=== PATIENT | male | born 2000 | race Caucasian/White ===

== ENCOUNTER 2020-02-11 17:12 | Emergency (ER) | payer SELFPAY ==
[2020-02-11 17:44] VITALS: PULSE 91
[2020-02-11 18:18] VITALS: BP 147/96
--- NOTE | 2020-02-11 18:31 | EDM.PDOC ---
ED HPI GENERAL MEDICAL PROBLEM - General Chief Complaint: Head Injury Stated Complaint: RIB AND HEAD INJURY Time Seen by Provider: 02/11/20 17:34 Source of Information: Reports: Patient, RN Notes Reviewed - History of Present Illness INITIAL COMMENTS - FREE TEXT/NARRATIVE: 19 yr old male wiped out on his long skateboard going to work. He states he hit some "black ice" He believes he had brief LOC. Moderate Haney at time of exam. No nausea or vomiting. No neck or back pain. L rib pain. This was called a trauma alert based on [facility]. of injury. Head Pain Score (Numeric/FACES): 10 Back Pain Score (Numeric/FACES): 10 - Related Data Allergies Allergy/AdvReac Type Severity Reaction Status Date / Time No Known Allergies Allergy Verified 04/03/16 13:06 Home Meds: Home Meds . [No Known Home Meds] 02/11/20 [History] Past Medical History HEENT History: Reports: Impaired Vision Genitourinary History: Reports: Other (See Below) Other Genitourinary History: testicular hernia repair at Psychiatric History: Reports: Depression - Past Surgical History HEENT Surgical History: Reports: Myringotomy w Tube(s), Oral Surgery Social & Family History - Family History Cardiac: Reports: Heart Failure, Hypertension Psychiatric: Reports: Anxiety, Depression Endocrine/Metabolic: Reports: Diabetes, type II Oncologic: Reports: Colon, Skin - Tobacco Use Smoking Status *Q: Current Every Day Smoker Years of Tobacco use: 3 Packs/Tins Daily: 2 - Caffeine Use Caffeine Use: Reports: Coffee, Soda - Recreational Drug Use Recreational Drug Type: Reports: Marijuana/Hashish Other Recreational Drug Type: stopped 3 weeks ago ED ROS GENERAL - Review of Systems Review Of Systems: See Below Constitutional: Reports: No Symptoms HEENT: Denies: Ear Discharge, Vertigo, Vision Change Respiratory: Denies: Shortness of Breath, Pleuritic Chest Pain Cardiovascular: Reports: Chest Pain (L lateral chest) GI/Abdominal: Denies: Abdominal Pain, Nausea, Vomiting Musculoskeletal: Denies: Neck Pain, Shoulder Pain, Arm Pain, Back Pain, Joint Pain Skin: Reports: Other (He has some scattered abrasions L arm and L leg) Neurological: Reports: Headache. Denies: Numbness, Tingling, Trouble Speaking, Difficulty Walking, Weakness ED EXAM, HEAD INJURY - Physical Exam Exam: See Below General Appearance: Alert, Mild Distress Head: Atraumatic, Scalp Tenderness. No: Scalp Swelling, Scalp Hematoma, Landry' s Sign, Facial Abrasions, Facial Swelling, Facial Tenderness, Raccoon Eyes Eyes: Bilateral Eye: PERRL Ears: Normal External Exam Nose: Normal Inspection Throat/Mouth: Normal Inspection Neck: Non-Tender, Full Range of Motion Respiratory: No Respiratory Distress, Lungs Clear, Normal Breath Sounds, Other ( tender L lateral chest, no bruising, swelling or abrasion visible) GI/Abdominal Exam: Soft, Non-Tender. No: Guarding, Rebound Back Exam: Normal Inspection. No: Paraspinal Tenderness, Vertebral Tenderness Extremities: Normal Inspection, Normal Range of Motion, Other (no bony tenderness) Skin: Normal Color, Warm/Dry Course - Vital Signs Last Recorded V/S: Last Vital Signs Temp 99.0 F 02/11/20 18:18 Pulse 91 02/11/20 17:30 Resp 16 02/11/20 18:18 BP 147/96 H 02/11/20 18:18 Pulse Ox 100 02/11/20 18:18 - Orders/Labs/Meds Orders: Active Orders 24 hr Category Date Time Status Head wo Cont [CT] Stat Exams 02/11/20 17:40 Taken Ribs 2V w Chest Lt [CR] Stat Exams 02/11/20 17:40 Taken - Re-Assessments/Exams Free Text/Narrative Re-Assessment/Exam: 02/11/20 18:58 CXR, ribs nl, Head CT nl Departure - Departure Time of Disposition: 18:29 Disposition: Home, Self-Care 01 Condition: Fair Clinical Impression: Fall, Contusion, chest wall, Contusion of scalp - Discharge Information Instructions: Facial or Scalp Contusion, [id number], Rib Contusion Referrals: PCP,None [Primary Care Provider] - Forms: ED Department Discharge, ED Return to Work/School Form Additional Instructions: Rest, increase activity slowly as tolerated. Avoid further injury to your head. follow up clinic if not much better within 3 to 4 days as expected, return to ED if symptoms worsening in any way. Sepsis Event Note - Evaluation Sepsis Screening Result: No Definite Risk - Focused Exam Vital Signs: Vital Signs Temp Pulse Resp BP Pulse Ox 02/11/20 18:18 99.0 F 16 147/96 H 100 02/11/20 17:30 99.4 F 91 20 150/96 H 100 Date Exam was Performed: 02/11/20 Time Exam was Performed: 18:53 - My Orders Last 24 Hours: My Active Orders 02/11/20 17:40 Head wo Cont [CT] Stat Ribs 2V w Chest Lt [CR] Stat - Assessment/Plan Last 24 Hours: My Active Orders 02/11/20 17:40 Head wo Cont [CT] Stat Ribs 2V w Chest Lt [CR] Stat
--- NOTE | 2020-02-12 07:39 | CT ---
Head CT Technique: Multiple axial sections through the brain were obtained. Intravenous contrast was not utilized. Comparison: No prior intracranial imaging is available. Findings: Ventricles along with basal cisterns and sulci over the convexities are within normal limits for the patient's age. No abnormal parenchymal densities are seen. No evidence of intracranial hemorrhage. No midline shift or mass-effect is seen. Bone window settings were reviewed. No acute calvarial abnormality is appreciated. Visualized mastoid sinuses and visualized paranasal sinuses are clear. Impression: 1. Nothing acute is appreciated on noncontrast head CT exam. Diagnostic code #1 This report was dictated in MDT I agree with preliminary report from [facility], finalized on 02/11/20, 7:10 PM Central Time
--- NOTE | 2020-02-12 07:39 | CR ---
Chest and left ribs: Frontal view of the chest was obtained as well as 4 views of the left ribs. Comparison: No prior chest or rib imaging is available. Heart size and mediastinum are within normal limits. Lungs are clear with no acute parenchymal change. No discrete rib abnormality is appreciated. Impression: 1. No definite left-sided rib abnormality is appreciated. Nothing acute is appreciated on comforting PA chest x-ray. Diagnostic code #1 This report was dictated in MDT
== END 2020-02-11 18:45 | disposition home or self-care (01) ==
LOC: JD.ED 17:12
DX: S00.03XA Contusion of scalp, initial encounter (principal); S20.212A Contusion of left front wall of thorax, initial encounter; V00.131A Fall from skateboard, initial encounter
CPT/HCPCS: 70450; 70450-26; 71101-26-LT; 71101-LT; 99282; 99284-25

== ENCOUNTER 2020-04-12 18:58 | Emergency (ER) | payer SELFPAY ==
[2020-04-12 19:10] VITALS: BP 132/65; PULSE 82
--- NOTE | 2020-04-12 19:13 | EDM.PDOC ---
ED HPI GENERAL MEDICAL PROBLEM - General Chief Complaint: Upper Extremity Injury/Pain Stated Complaint: INJURED LEFT WRIST Time Seen by Provider: 04/12/20 19:07 Source of Information: Reports: Patient, RN Notes Reviewed History Limitations: Reports: No Limitations - History of Present Illness INITIAL COMMENTS - FREE TEXT/NARRATIVE: Patient is a 19-year-old male who presents to the ED for the evaluation of a left hand/wrist injury. The patient notes he was having an argument with a female, and he got frustrated ended up walking away and hit the wall with his left hand. Patient noticed he had some pain into his left pinky knuckle, and to his wrist. He did this shortly prior to arrival to the ER, he did not take any sort of medications at home. There is a small skin abrasion to the left fourth MCP surface. Otherwise its not actively bleeding and there is no obvious deformity noted. Patient denies any numbness and tingling into the hand , or pain in the elbow. Patient states he is right-hand dominant. Left Hand Pain Score (Numeric/FACES): 7 - Related Data Allergies Allergy/AdvReac Type Severity Reaction Status Date / Time No Known Allergies Allergy Verified 04/12/20 19:05 Home Meds: Home Meds . [No Known Home Meds] 02/11/20 [History] Past Medical History HEENT History: Reports: Impaired Vision Genitourinary History: Reports: Other (See Below) Other Genitourinary History: testicular hernia repair at Psychiatric History: Reports: Depression - Past Surgical History HEENT Surgical History: Reports: Myringotomy w Tube(s), Oral Surgery Social & Family History - Family History Cardiac: Reports: Heart Failure, Hypertension Psychiatric: Reports: Anxiety, Depression Endocrine/Metabolic: Reports: Diabetes, type II Oncologic: Reports: Colon, Skin - Tobacco Use Smoking Status *Q: Current Every Day Smoker Years of Tobacco use: 5 Packs/Tins Daily: 0.5 - Caffeine Use Caffeine Use: Reports: Coffee, Energy Drinks, Soda, Tea - Recreational Drug Use Recreational Drug Use: No Review of Systems - Review of Systems Review Of Systems: Comprehensive ROS is negative, except as noted in HPI. ED EXAM, GENERAL - Physical Exam Exam: See Below Exam Limited By: No Limitations General Appearance: Alert, WD/WN, No Apparent Distress Respiratory/Chest: No Respiratory Distress, Lungs Clear, Normal Breath Sounds, No Accessory Muscle Use, Chest Non-Tender Cardiovascular: Normal Peripheral Pulses, Regular Rate, Rhythm, No Murmur Peripheral Pulses: 3+: Radial (L), Radial (R) Extremities: Normal Inspection, Normal Range of Motion (ROM of left wrist is slow, but patient is able to move in all ROM with little difficulty), Normal Capillary Refill Neurological: Alert, Oriented, Normal Cognition, No Motor/Sensory Deficits Psychiatric: Normal Affect, Normal Mood Skin Exam: Warm, Dry, Normal Color, No Rash, Wound/Incision (small skin abrasion noted to dorsal left 4th MCP surface, not actively bleeding.) Course - Vital Signs Last Recorded V/S: Last Vital Signs Temp 98.2 F 04/12/20 19:06 Pulse 82 04/12/20 19:06 Resp 18 04/12/20 19:06 BP 132/65 04/12/20 19:06 Pulse Ox 96 04/12/20 19:06 - Orders/Labs/Meds Orders: Active Orders 24 hr Category Date Time Status Hand Comp Min 3V Lt [CR] Stat Exams 04/12/20 19:11 Ordered - Re-Assessments/Exams Free Text/Narrative Re-Assessment/Exam: 04/12/20 19:49 Patient presents to the ED for evaluation of his left hand/wrist injury. X- rays were taken at time of triage and do not demonstrate any sort of fracture or bony abnormality appreciated by myself or Dr. Chauhan. Official radiology read is pending. I did offer the patient an injection of Toradol for pain management, but he declined. He states he will take some I will discharge him home with general recommendations. Ibuprofen/Tylenol at home. Departure - Departure Time of Disposition: 19:50 Disposition: Home, Self-Care 01 Condition: Good Clinical Impression: Left hand pain, Left wrist pain - Discharge Information *PRESCRIPTION DRUG MONITORING PROGRAM REVIEWED*: No *COPY OF PRESCRIPTION DRUG MONITORING REPORT IN PATIENT SUELLEN: No Instructions: Wrist Pain, Adult, [id number] Referrals: PCP,None [Primary Care Provider] - Forms: ED Department Discharge Additional Instructions: You have been evaluated in the ED for your left hand injury. Your x-ray demonstrated no sign of any obvious fracture or other bony abnormality. Please use ice as tolerated to the affected area. Please try to elevate the affected area to relieve swelling. You may take Tylenol 500 mg or ibuprofen 600mg q6 hrs for pain relief. Please do so until you have a tolerable level of pain with activity. Do not exceed 4000mg Tylenol or 3200mg ibuprofen in a 24 hour time period. Recommend you go to a retail place like [email or web address] or any pharmacy, and obtain a wrist splint to use to help relieve pain over the next few days, or use CAROLIN wraps to help provide some light support. Please return to ED if your symptoms should change or worsen. Sepsis Event Note - Evaluation Sepsis Screening Result: No Definite Risk - Focused Exam Vital Signs: Vital Signs Temp Pulse Resp BP Pulse Ox 04/12/20 19:06 98.2 F 82 18 132/65 96 Date Exam was Performed: 04/12/20 Time Exam was Performed: 19:46 - My Orders Last 24 Hours: My Active Orders 04/12/20 19:11 Hand Comp Min 3V Lt [CR] Stat - Assessment/Plan Last 24 Hours: My Active Orders 04/12/20 19:11 Hand Comp Min 3V Lt [CR] Stat
--- NOTE | 2020-04-14 10:27 | CR ---
Left hand: 3 views left hand were obtained. Comparison: No prior hand exam is available. Joint spaces are preserved. No fracture, dislocation or other bony abnormality is seen. Impression: 1. No abnormality is identified on 4 view left hand exam. Diagnostic code #1 This report was dictated in MDT
== END 2020-04-12 20:15 | disposition home or self-care (01) ==
LOC: JD.ED 18:58
DX: S60.512A Abrasion of left hand, initial encounter (principal); M25.532 Pain in left wrist; F17.210 Nicotine dependence, cigarettes, uncomplicated; W22.01XA Walked into wall, initial encounter
CPT/HCPCS: 73130-26-LT; 73130-LT; 99282; 99283-25

== ENCOUNTER 2021-02-22 10:26 | Emergency (ER) | payer SELFPAY ==
--- NOTE | 2021-02-22 10:59 | EDM.PDOC ---
ED HPI GENERAL MEDICAL PROBLEM - General Chief Complaint: Upper Extremity Injury/Pain Stated Complaint: LT SHOULDER,ELBOW AND WRIST INJ Time Seen by Provider: 02/22/21 10:50 - History of Present Illness INITIAL COMMENTS - FREE TEXT/NARRATIVE: 20-year-old male presents the emergency room after injuring his left shoulder and elbow. Shortly before arrival the patient was reaching for his cigarettes while riding his skateboard. This was unsuccessful and he crashed landing on his left shoulder and then rolling. Patient denies any head injury or loss of consciousness. Patient complains of left shoulder pain he is pretty convinced its not his clavicle because he is injured this in the past. Patient also has some elbow discomfort but this is getting better over time. The patient initially had some wrist discomfort but this is really resolved. Patient has good range of motion of his elbow and his wrist however his shoulder seems to be problematic. He also has limited chest wall discomfort as well. Patient denies any other pain associated with this most unfortunate event. Left Shoulder Pain Score (Numeric/FACES): 8 - Related Data Allergies Allergy/AdvReac Type Severity Reaction Status Date / Time No Known Allergies Allergy Verified 02/22/21 10:44 Home Meds: Home Meds . [No Known Home Meds] 02/11/20 [History] Past Medical History HEENT History: Reports: Impaired Vision Genitourinary History: Reports: Other (See Below) Other Genitourinary History: testicular hernia repair at Psychiatric History: Reports: Autism, Depression - Past Surgical History HEENT Surgical History: Reports: Myringotomy w Tube(s), Oral Surgery Social & Family History - Family History Cardiac: Reports: Heart Failure, Hypertension Psychiatric: Reports: Anxiety, Depression Endocrine/Metabolic: Reports: Diabetes, type II Oncologic: Reports: Colon, Skin - Tobacco Use Tobacco Use Status *Q: Current Every Day Tobacco User Years of Tobacco use: 10 Packs/Tins Daily: 1 - Caffeine Use Caffeine Use: Reports: Coffee - Recreational Drug Use Recreational Drug Use: No Review of Systems - Review of Systems Review Of Systems: See Below Constitutional: Reports: No Symptoms Eyes: Reports: No Symptoms Ears: Reports: No Symptoms Nose: Reports: No Symptoms Mouth/Throat: Reports: No Symptoms Respiratory: Reports: No Symptoms, Pleuritic Chest Pain Cardiovascular: Denies: Chest Pain GI/Abdominal: Reports: No Symptoms Genitourinary: Reports: No Symptoms Musculoskeletal: Reports: Other (See history of present illness no other aches and pains at time of initial evaluation) Skin: Reports: No Symptoms Neurological: Reports: No Symptoms ED EXAM, GENERAL - Physical Exam Exam: See Below Exam Limited By: No Limitations General Appearance: Alert, No Apparent Distress Eye Exam: Bilateral Eye: EOMI, Normal Inspection, PERRL Ears: Normal External Exam, Normal Canal, Hearing Grossly Normal, Normal TMs Nose: Normal Inspection, Normal Mucosa, No Blood Throat/Mouth: Normal Inspection, Normal Lips, Normal Teeth, Normal Oropharynx, Normal Voice, No Airway Compromise Head: Atraumatic, Normocephalic Neck: Normal Inspection, Supple, Non-Tender, Full Range of Motion. No: Lymphadenopathy (L), Lymphadenopathy (R), Tender Lateral, Tender Midline, Thyromegaly Respiratory/Chest: No Respiratory Distress, Lungs Clear, Normal Breath Sounds Cardiovascular: Normal Peripheral Pulses, Regular Rate, Rhythm, No Edema GI/Abdominal: Normal Bowel Sounds, Soft, Non-Tender, No Organomegaly Back Exam: Normal Inspection, Full Range of Motion. No: CVA Tenderness (L), CVA Tenderness (R), Vertebral Tenderness Extremities: Other (Does not want to move his left shoulder very much flexion and extension supination pronation at the elbow appear to be intact but this is a little limited range of motion of the wrist hand and digits is entirely within normal limits neurovascular examination of the hand is normal) Neurological: Alert, Oriented, Normal Cognition Skin Exam: Warm, Dry, Intact, Other (He has an abrasion over his left shoulder) Course - Vital Signs Last Recorded V/S: Last Vital Signs Temp 36.3 C 02/22/21 10:38 Pulse 93 02/22/21 10:38 Resp 18 02/22/21 10:38 BP 140/75 02/22/21 10:38 Pulse Ox 97 02/22/21 10:38 - Orders/Labs/Meds Orders: Active Orders 24 hr Category Date Time Status Chest 2V [CR] Stat Exams 02/22/21 11:37 Taken Elbow Min 3V Lt [CR] Stat Exams 02/22/21 11:37 Taken Shoulder Comp Lt [CR] Stat Exams 02/22/21 11:37 Taken Durable Medical Equipment for Discharge [DME for Oth 02/22/21 12:52 Ordered Discharge] [COMM] Stat - Re-Assessments/Exams Free Text/Narrative Re-Assessment/Exam: 02/22/21 11:08 We will get x-rays to further evaluate shoulder and elbow injuries and we will check a chest x-ray as well. 02/22/21 12:54 X-rays are negative for acute fracture dislocation of the shoulder and elbow chest x-ray is unremarkable no evidence of pneumothorax or pulmonary contusion. Patient will be placed in a sling for comfort. He is advised to follow-up with his regular healthcare provider towards the end of this week for recheck. Departure - Departure Time of Disposition: 12:54 Disposition: Home, Self-Care 01 Clinical Impression: Chest wall injury, Injury of left shoulder, Contusion of left shoulder - Discharge Information Referrals: PCP,None [Primary Care Provider] - Forms: ED Department Discharge Additional Instructions: Return to the emergency room with any questions problems or worsening symptoms. Follow-up with your regular healthcare provider or follow-up here at the hospital clinic at the end of this next week for recheck. The phone number to the hospital clinic is [phone]. I recommend you wear the sling at all times until your shoulder is reevaluated. Tylenol and/or Motrin as needed for discomfort follow the directions on the bottles. Sepsis Event Note (ED) - Evaluation Sepsis Screening Result: No Definite Risk - Focused Exam Vital Signs: Vital Signs Temp Pulse Resp BP Pulse Ox 02/22/21 10:38 36.3 C 93 18 140/75 97 - My Orders Last 24 Hours: My Active Orders 02/22/21 11:37 Chest 2V [CR] Stat Elbow Min 3V Lt [CR] Stat Shoulder Comp Lt [CR] Stat 02/22/21 12:52 Durable Medical Equipment for Discharge [DME for Discharge] [COMM] Stat - Assessment/Plan Last 24 Hours: My Active Orders 02/22/21 11:37 Chest 2V [CR] Stat Elbow Min 3V Lt [CR] Stat Shoulder Comp Lt [CR] Stat 02/22/21 12:52 Durable Medical Equipment for Discharge [DME for Discharge] [COMM] Stat
--- NOTE | 2021-02-22 13:02 | CR ---
Left elbow: 4 views of the left elbow were obtained. Comparison: No prior elbow study is available. Joint spaces are maintained. No joint effusion is identified. No acute fracture, dislocation or other bony abnormality is appreciated. Impression: 1. Nothing acute is seen on left elbow study. Diagnostic code #1
--- NOTE | 2021-02-22 13:02 | CR ---
Left shoulder: 3 views of the left shoulder were obtained. Comparison: No prior shoulder exam is available. Glenohumeral joint and acromioclavicular joint appear normal. No acute fracture, dislocation or other bony abnormality is appreciated. Impression: 1. Nothing acute is seen on 3 view left shoulder study. Diagnostic code #1
--- NOTE | 2021-02-22 13:03 | CR ---
Chest: PA and lateral views of the chest were obtained. Comparison: Prior chest x-rays of 02/11/20 Heart size and mediastinum are normal. Lungs are clear with no acute parenchymal change. Bony structures show nothing acute. Impression: 1. Nothing acute is seen on 2 view chest x-ray. Diagnostic code #1
[2021-02-22 13:17] VITALS: BP 136/75; PULSE 76
== END 2021-02-22 13:15 | disposition home or self-care (01) ==
LOC: JD.ED 10:26
DX: S40.012A Contusion of left shoulder, initial encounter (principal); S29.9XXA Unspecified injury of thorax, initial encounter; Z72.0 Tobacco use; V00.131A Fall from skateboard, initial encounter
CPT/HCPCS: 71046; 71046-26; 73030-26-LT; 73030-LT; 73080-26-LT; 73080-LT; 99283; 99283-25

== ENCOUNTER 2021-04-19 23:39 | Emergency (ER) | payer OTHER ==
[2021-04-19 23:52] VITALS: BP 151/97; PULSE 76
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
[2021-04-20] MEDS ORDERED: Morphine 2 MG/ML SYRINGE IM ONE (02:02)
[2021-04-20] MEDS ORDERED: Diphtheria,Pertussis(Acell),Tetanus Vaccine 0.5 ML Syringe IM ONE (02:06)
--- NOTE | 2021-04-20 17:20 | CT ---
CT cervical spine Technique: Multiple axial sections were obtained from both C1 inferiorly to the top of T5. Reconstructed coronal and sagittal images were obtained. Comparison: No prior cervical spine imaging is available. Findings: Very slight disc space narrowing is noted at C4-5 and C5-6. C5-6 level shows slight anterior osteophytes. Vertebral body heights are maintained. No fracture or subluxation is seen. Visualized lungs apices are clear. Visualized soft tissues appear within normal limits. Impression: 1. Slight degenerative change as noted above. 2. Nothing acute is appreciated on CT study of the cervical spine. Diagnostic code #2 Minimal disagree with preliminary report from [facility], finalized on 04/20/21, 4:24 AM CDT, code 2
--- NOTE | 2021-04-20 17:27 | CR ---
Right elbow: 4 views of the right elbow were obtained. Comparison: No prior right elbow study is available. No joint effusion is seen. Joint spaces are preserved. No acute fracture, dislocation or other bony abnormality is appreciated. Impression: 1. No abnormality is identified on right elbow study. Diagnostic code #1
--- NOTE | 2021-04-20 17:27 | CR ---
Chest: AP and lateral views of the chest were obtained. Comparison: Prior chest x-ray of 02/22/21. Heart size and mediastinum are within normal limits. Lungs are clear with no acute parenchymal change. No acute osseous abnormality is appreciated. Impression: 1. Nothing acute is appreciated on 2 view chest x-ray. Diagnostic code #1
--- NOTE | 2021-04-20 18:12 | CT ---
Head CT Technique: Multiple axial sections through the brain were obtained. Intravenous contrast was not utilized. Comparison: Prior head CT exam of 02/11/20. Findings: Ventricles along with basal cisterns and sulci over the convexities are within normal limits for the patient's age. No abnormal parenchymal densities are seen. No evidence of intracranial hemorrhage. No midline shift or mass-effect is seen. Bone window settings were reviewed. No acute calvarial abnormality is appreciated. Visualized mastoid sinuses and paranasal sinuses show nothing acute. Impression: 1. Nothing acute is seen on noncontrast head CT exam. Diagnostic code #1 I agree with preliminary report from [facility], finalized on 04/20/21, at 4:17 AM CDT, code 1
--- NOTE | 2021-04-20 18:19 | CR ---
Lumbar spine: AP and lateral views of the lumbar spine were obtained. Comparison: No prior study is available. Mild scattered posterior disc space narrowing is seen. Vertebral body heights are maintained. Pedicles are intact. Visualized transverse and spinous processes are intact. No subluxation or fracture is seen. Impression: 1. Slight posterior disc space narrowing scattered within the spine is seen. 2. Two-view thoracic spine exam is otherwise unremarkable. Diagnostic code #2
--- NOTE | 2021-04-20 18:24 | CR ---
Right shoulder: 3 views of the right shoulder were obtained. Comparison: No previous study. Glenohumeral joint and acromioclavicular joint appear within normal limits. No acute fracture, dislocation or other bony abnormality is appreciated. Impression: 1. No abnormality is appreciated on 3 view right shoulder study. Diagnostic code #1
== END 2021-04-20 03:47 | disposition home or self-care (01) ==
LOC: JD.ED 23:39
DX: S40.211A Abrasion of right shoulder, initial encounter (principal); S30.810A Abrasion of lower back and pelvis, initial encounter; S09.90XA Unspecified injury of head, initial encounter; R56.9 Unspecified convulsions; V19.9XXA Pedal cyclist (driver) (passenger) injured in unspecified traffic accident, initial encounter; Z23 Encounter for immunization; Y93.I9 Activity, other involving external motion
CPT/HCPCS: 70450; 70450-26; 71046; 71046-26; 72100; 72100-26; 72125; 72125-26; 73030-26-RT; 73030-RT; 73080-26-RT; 73080-RT; 90471; 90715; 96372; 99283; 99284-25; J2270